=== PATIENT | female | born 2000 | race Caucasian/White ===

== ENCOUNTER 2019-02-14 02:01 | Emergency (ER) | payer BC ==
[~2019-02-14] VITALS: Ht 165.1 cm; Wt 70.5 kg
[2019-02-14 02:06] VITALS: BP 132/97; TEMP 97.9
[2019-02-14 02:28] LABS: BASO # 0.1 (0.0-0.2); BASO % 0.5 % (0.0-2.0); EOS # 0.2 (0.0-0.7); EOS % 2.2 % (0-4.0); GRAN # 4.5 (1.4-6.5); GRAN % 43.8 % (42.2-75.2); HEMATOCRIT 38.1 % (35.0-45.0); HEMOGLOBIN 12.5 g/dl (12.0-15.0); LYMPH # 4.4 (1.2-3.4); LYMPH % 43.3 % (20.0-51.0); MEAN CELL VOLUME 89 fl (80.0-95.0); MEAN CORPUSCULAR HEMOGLOBIN 29 pg (26.0-32.0); MEAN CORPUSCULAR HGB CONC 33 g/dl (33.0-37.0); MEAN PLATELET VOLUME 9.7 fl (7.4-10.4); MONO % 10.1 % (1.7-9.3); PLATELET COUNT 266 K/mm3 (130-400); RED BLOOD COUNT 4.28 M/mm3 (4.10-5.30); REDCELL DISTRIBUTION WIDTH-CV 11.7 % (11.5-14.5)
[2019-02-14 02:38] LABS: ALANINE AMINOTRANSFERASE < 6 U/L (9-52); ALBUMIN 4.3 gm/dL (3.5-5.0); ALKALINE PHOSPHATASE 60 U/L (50-136); ANION GAP 12 mmol/L (7-16); AST,SGOT 23 U/L (15-37); BILIRUBIN,TOTAL 0.2 mg/dL (0.0-1.0); BLOOD UREA NITROGEN 12 mg/dL (7-17); CALCIUM 9.1 mg/dL (8.4-10.2); CARBON DIOXIDE 24 mmol/L (22-30); CHLORIDE 106 mmol/L (98-107); CREATININE, serum 0.86 (0.52-1.25); GLUCOSE 136 mg/dL (74-106); LIPASE 75 U/L (23-300); POTASSIUM 3.6 mmol/L (3.4-5.0); SODIUM 141 mmol/L (137-145); TOTAL PROTEIN 7.4 gm/dL (6.4-8.2)
[2019-02-14 03:07] LABS: COLLECTION METHOD CLEAN CATCH
[2019-02-14 03:24] LABS: MUCOUS Present /lpf; PH 5 (5-8); SQUAMOUS EPITHELIAL 0-2 /hpf; URINE APPEARANCE Cloudy; URINE BACTERIA Rare /hpf; URINE BILIRUBIN Negative (NEGATIVE); URINE BLOOD 2+ (NEGATIVE); URINE COLOR Yellow; URINE GLUCOSE Negative (NEGATIVE); URINE KETONE Negative (NEGATIVE); URINE LEUKOCYTE ESTERASE 3+ (NEGATIVE); URINE NITRATE Negative (NEGATIVE); URINE PROTEIN(semi-quant) 1+ (NEGATIVE); URINE UROBILINOGEN Negative (NEGATIVE)
[2019-02-14] MEDS ORDERED: ZOFRAN ODT8 MG PO (03:26)
[2019-02-14] MEDS ORDERED: OMNICEF 300MG300 MG PO (03:26)
[2019-02-14 04:15] VITALS: PULSE 70
[2019-02-17] MEDS ORDERED: MACROBID 1100 MG/CAP PO (06:59)
== END 2019-02-14 04:15 | disposition home or self-care (01) ==
LOC: COL.ER 02:01
PROVIDERS: Emergency Medicine
DX: N12 Tubulo-interstitial nephritis, not specified as acute or chronic (principal); F17.210 Nicotine dependence, cigarettes, uncomplicated
CPT/HCPCS: A4216; J0696; J1885; J2270; J2405; J7030

== ENCOUNTER 2019-02-26 04:36 | Day surgery (SDC) | payer BC ==
[~2019-02-26] VITALS: Ht 167.6 cm; Wt 66.3 kg
[2019-02-26] VITALS (8 sets, daily range): BP systolic 114–137; BP diastolic 70–86; PULSE 79–98; TEMP 97.8–98.6
[~2019-02-26 04:36] MED LIST: MACROBID 1100 MG/CAP PO; OMNICEF 300MG300 MG PO; ZOFRAN ODT8 MG PO
[2019-02-26 05:01] LABS: BASO # 0.1 (0.0-0.2); BASO % 0.6 % (0.0-2.0); EOS # 0.2 (0.0-0.7); EOS % 1.9 % (0-4.0); GRAN # 3.1 (1.4-6.5); GRAN % 34.3 % (42.2-75.2); HEMOGLOBIN 12.8 g/dl (12.0-15.0); LYMPH % 54.7 % (20.0-51.0); MEAN CELL VOLUME 89 fl (80.0-95.0); MEAN CORPUSCULAR HEMOGLOBIN 29 pg (26.0-32.0); MEAN CORPUSCULAR HGB CONC 33 g/dl (33.0-37.0); MEAN PLATELET VOLUME 9.7 fl (7.4-10.4); MONO # 0.8 (0.1-0.6); MONO % 8.4 % (1.7-9.3); PLATELET COUNT 283 K/mm3 (130-400); RED BLOOD COUNT 4.38 M/mm3 (4.10-5.30); REDCELL DISTRIBUTION WIDTH-CV 11.7 % (11.5-14.5)
[2019-02-26 05:13] LABS: ALANINE AMINOTRANSFERASE 15 U/L (9-52); ALBUMIN 4.5 gm/dL (3.5-5.0); ALKALINE PHOSPHATASE 61 U/L (50-136); ANION GAP 10 mmol/L (7-16); AST,SGOT 23 U/L (15-37); BILIRUBIN,TOTAL 0.2 mg/dL (0.0-1.0); BLOOD UREA NITROGEN 15 mg/dL (7-17); CALCIUM 9.4 mg/dL (8.4-10.2); CARBON DIOXIDE 26 mmol/L (22-30); CHLORIDE 104 mmol/L (98-107); CREATININE, serum 0.88 (0.52-1.25); GLUCOSE 95 mg/dL (74-106); LIPASE 101 U/L (23-300); POTASSIUM 3.7 mmol/L (3.4-5.0); SODIUM 139 mmol/L (137-145); TOTAL PROTEIN 7.7 gm/dL (6.4-8.2)
[2019-02-26 05:14] LABS: C-REACTIVE PROTEIN < 0.5 mg/dL (0.0-0.9)
[2019-02-26 05:33] LABS: COLLECTION METHOD CLEAN CATCH
[2019-02-26 05:42] LABS: MUCOUS Present /lpf; PH 5 (5-8); SQUAMOUS EPITHELIAL 0-2 /hpf; URINE APPEARANCE Clear; URINE BACTERIA Rare /hpf; URINE BILIRUBIN Negative (NEGATIVE); URINE BLOOD 2+ (NEGATIVE); URINE COLOR Yellow; URINE GLUCOSE Negative (NEGATIVE); URINE KETONE Negative (NEGATIVE); URINE LEUKOCYTE ESTERASE Negative (NEGATIVE); URINE NITRATE Negative (NEGATIVE); URINE PROTEIN(semi-quant) Negative (NEGATIVE); URINE UROBILINOGEN Negative (NEGATIVE)
--- NOTE | 2019-02-26 11:00 | NUR ---
Patient alert and oriented, answers questions appropriately. See assessment. No c/o pain. No c/o uirnary frequency or hesitancy. C/o urinary burning. No other c/o at this time.
--- NOTE | 2019-02-26 15:56 | NUR ---
Discharge instructions reviewed with patient and friend, verbalized understanding. Discharged via wheelchair to auto/home with friend at 1545.
== END 2019-02-26 15:40 | disposition home or self-care (01) ==
LOC: COL.ER 04:36 → SURG 04:37 → SDCO 04:37 → COL.ER 04:37 → SURG 07:38 → EDSTATUS 08:18 → SDCO 15:40
PROVIDERS: Emergency Medicine
DX: N20.1 Calculus of ureter (principal); J45.909 Unspecified asthma, uncomplicated
CPT/HCPCS: OP; C1769; C2617; J0690; J1100; J1170; J1885; J1956; J2405; J2550; J2704; J3010; J7030; J7120; Q9967